=== PATIENT | female | born 1990 | race Caucasian/White ===

== ENCOUNTER 2019-06-03 20:09 | Emergency (ER) | payer BC, OTHER ==
[2019-06-03 20:24] VITALS: BP 133/74
--- NOTE | 2019-06-03 20:50 | UC ---
Hand/Wrist HPI - HPI Summary HPI Summary: 28-year-old female presents with complaints of left hand pain. States 2 weeks ago she was playing softball and was struck in the left hand while attempting to catch the ball. States she has had persistent pain, bruising, and swelling to the lateral aspect of her left hand. Has been taking [id number]-[id number] analgesics with some relief in pain. [id number]. Denies any numbness or tingling. - History Of Current Complaint Chief Complaint: UCUpperExtremity Stated Complaint: LEFT HAND INJURY Time Seen by Provider: 06/03/19 20:41 Hx Obtained From: Patient Hx Last Menstrual Period: may 24 Pain Intensity: 3 - Allergies/Home Medications Allergies/Adverse Reactions: Allergies Allergy/AdvReac Type Severity Reaction Status Date / Time NARCOTICS Allergy Severe See Comment Uncoded 06/03/19 20:24 PMH/Surg Hx/FS Hx/Imm Hx Previously Healthy: Yes - Denies significant PMH Other History Of: Negative For: Anticoagulant Therapy - Surgical History Surgical History: Yes Surgery Procedure, Year, and Place: cholecystectomy - Family History Known Family History: Positive: Cardiac Disease, Hypertension, Diabetes - Social History Lives: Alone Alcohol Use: None Substance Use Type: None Smoking Status (MU): Never Smoked Tobacco Review of Systems All Other Systems Reviewed And Are Negative: Yes Constitutional: Positive: Negative Skin: Positive: Bruising Respiratory: Positive: Negative Cardiovascular: Positive: Negative Gastrointestinal: Positive: Negative Genitourinary: Positive: Negative Motor: Negative: Weakness Neurovascular: Negative: Decreased Sensation Musculoskeletal: Positive: Other: - See HPi Neurological: Positive: Negative Is Patient Immunocompromised?: No Physical Exam - Summary Physical Exam Summary: GENERAL APPEARANCE: Well developed, well nourished, alert and cooperative, and appears to be in no acute distress. CARDIAC: Normal S1 and S2. No S3, S4 or murmurs. Rhythm is regular. There is no peripheral edema, cyanosis or pallor. Extremities are warm and well perfused. Capillary refill is less than 2 seconds. Peripheral pulses intact. LUNGS: Clear to auscultation without rales, rhonchi, wheezing or diminished breath sounds. ABDOMEN: Positive bowel sounds. Soft, nondistended, nontender. No guarding or rebound. No masses or hepatosplenomegally. MUSKULOSKELETAL: Normal muscular development. Normal gait. EXTREMITIES: Tenderness with mild edema to the base of the left 5th metacarpal. Significant ecchymosis noted to the anterior and posterior aspect of the lateral left hand. Circulation and sensation intact. SKIN: Skin normal color, texture and turgor. Triage Information Reviewed: Yes Vital Signs: Initial Vital Signs Temp 98.7 F 06/03/19 20:22 Pulse 81 06/03/19 20:22 Resp 16 06/03/19 20:22 BP 133/74 06/03/19 20:22 Pulse Ox 100 06/03/19 20:22 Vital Signs Reviewed: Yes Procedures - Splinting Left Upper Extremity Location: left hand Hand-Made Type: orthoglass Splint: ulnar Pre-Proc Neuro Vasc Exam: normal Post-Proc Neuro Vasc Exam: normal Diagnostics - Radiology No standard instances Radiology Interpretation Completed By: ED Physician - + fracture base left 5th metacarpal Hand/Wrist Course/Dx - Course Course Of Treatment: 28-year-old female presents with complaints of left hand pain. States 2 weeks ago she was playing softball and was struck in the left hand while attempting to catch the ball. States she has had persistent pain, bruising, and swelling to the lateral aspect of her left hand. Has been taking yijb-oxv-vqviqye analgesics with some relief in pain. Chwg-fqus-[id number]. Denies any numbness or tingling. Afebrile. Vital signs stable. Patient hand tenderness with mild edema to the base of the left 5th metacarpal. Significant ecchymosis noted to the anterior and posterior aspect of the lateral left hand. Circulation and sensation intact. Preliminary reading of the x-ray showed a positive fracture at the base of the fifth metacarpal. Patient was placed in an ulnar short arm splint by myself using Ortho-Glass. Circulation and sensation were intact pre- and post-application. Recommending conservative treatment with over-the- counter analgesics and RICE. She is to follow-up with orthopedic surgery within 5 days. Anticipatory guidance and warning symptoms were reviewed with the patient. Verbalizes understanding and agrees with plan of care. - Differential Dx/Diagnosis Differential Diagnosis/HQI/PQRI: Contusion, Dislocation, Fracture, Sprain Provider Diagnosis: Closed fracture of 5th metacarpal Discharge - Sign-Out/Discharge Documenting (check all that apply): Patient Departure All imaging exams completed and their final reports reviewed: No - Discharge Plan Condition: Stable Disposition: HOME Patient Education Materials: Hand Fracture (ED), Splint Care (ED) Referrals: Rodney Jamil MD [Primary Care Provider] - Luke Winn MD [Medical Doctor] - 5 Days Additional Instructions: The x-ray performed in the clinic today showed evidence of a fracture of the base of the 5th metacarpal. Wear the splint that was applied in the clinic at all times. Do not get this wet. Rest the hand as much as possible. Apply ice to the affected area for 15-20 minutes at least 4 times a day to help with the pain and swelling. Elevate the hand to help reduce swelling. Take acetaminophen (Tylenol) or ibuprofen (Advil, Motrin) according to directions as needed for pain. Follow up with orthopedic surgery within 5 days for evaluation and treatment. Seek immediate medical attention if you have severe pain not managed with pain medication, develop numbness or tingling in the hand or fingers, or have any worsening of symptoms. - Billing Disposition and Condition Condition: STABLE Disposition: Home - Attestation Statements Provider Attestation: Per institutional requirements, I have reviewed the chart, however, I was not consulted specifically or made aware of this patient by the midlevel provider. I did not personally evaluate, interact with , or disposition this patient.
--- NOTE | 2019-06-04 14:55 | UC ---
- Progress Note Progress Note: RADIOLOGY REPORT REVIEWED. Mildly comminuted grossly nondisplaced fracture at the base of the fifth metacarpal. Potential although not definitive intra-articular extension at the hamate metacarpal articulation. Overlying soft tissue swelling. Normal articular alignment. NO CHANGE IN MGMT Course/Dx - Diagnoses Provider Diagnoses: Closed fracture of 5th metacarpal Discharge - Sign-Out/Discharge Documenting (check all that apply): Post-Discharge Follow Up All imaging exams completed and their final reports reviewed: Yes - Discharge Plan Condition: Stable Disposition: HOME Patient Education Materials: Hand Fracture (ED), Splint Care (ED) Referrals: Luke Winn MD [Medical Doctor] - 5 Days Rodney Jamil MD [Primary Care Provider] - Additional Instructions: The x-ray performed in the clinic today showed evidence of a fracture of the base of the 5th metacarpal. Wear the splint that was applied in the clinic at all times. Do not get this wet. Rest the hand as much as possible. Apply ice to the affected area for 15-20 minutes at least 4 times a day to help with the pain and swelling. Elevate the hand to help reduce swelling. Take acetaminophen (Tylenol) or ibuprofen (Advil, Motrin) according to directions as needed for pain. Follow up with orthopedic surgery within 5 days for evaluation and treatment. Seek immediate medical attention if you have severe pain not managed with pain medication, develop numbness or tingling in the hand or fingers, or have any worsening of symptoms. - Billing Disposition and Condition Condition: STABLE Disposition: Home
== END 2019-06-03 21:05 | disposition home or self-care (01) ==
LOC: UCEAST 20:09
DX: S62.317A Displaced fracture of base of fifth metacarpal bone, left hand, initial encounter for closed fracture (principal); W21.07XA Struck by softball, initial encounter; Y93.64 Activity, baseball; Y92.320 Baseball field as the place of occurrence of the external cause; Y99.8 Other external cause status
CPT/HCPCS: 26600; 99212; G0463